=== PATIENT | male | born 1990 | race Caucasian/White ===

== ENCOUNTER 2017-03-19 11:34 | Emergency (ER) | payer BC, OTHER ==
[2017-03-19] MEDS ORDERED: Acetaminophen 500 MG TAB ONE (13:44)
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
== END 2017-03-19 15:13 | disposition home or self-care (01) ==
LOC: ERS 11:34
DX: M54.6 Pain in thoracic spine (principal); F17.210 Nicotine dependence, cigarettes, uncomplicated; V43.52XA Car driver injured in collision with other type car in traffic accident, initial encounter
CPT/HCPCS: 72072